=== PATIENT | male | born 1975 | race Caucasian/White ===

== ENCOUNTER 2024-06-23 04:22 | Day surgery (SDC) | payer OTHER ==
[2024-06-13 11:58] VITALS: BMI 31.4
[2024-06-23 07:27] VITALS: TEMP 97.9
[2024-06-23 09:04] VITALS: RESP 15
[2024-06-23 09:08] VITALS: BP 113/84; PULSE 61
== END 2024-06-23 09:11 | disposition home or self-care (01) ==
LOC: EDBD → JASU-ENDO 04:22
PROVIDERS: ATTEND Internal Medicine Gastroenterology
PROC: 0DB78ZX Excision of Stomach, Pylorus, Via Natural or Artificial Opening Endoscopic, Diagnostic (ICD-10-PCS; 2024-06-23)
PROC: 0DB68ZX Excision of Stomach, Via Natural or Artificial Opening Endoscopic, Diagnostic (ICD-10-PCS; 2024-06-23)
PROC: 0DB48ZX Excision of Esophagogastric Junction, Via Natural or Artificial Opening Endoscopic, Diagnostic (ICD-10-PCS; principal; 2024-06-23 08:00)
DX: K21.00 Gastro-esophageal reflux disease with esophagitis, without bleeding (principal); K29.50 Unspecified chronic gastritis without bleeding
CPT/HCPCS: 88305-TC

== ENCOUNTER 2024-07-21 07:07 | Day surgery (SDC) | payer OTHER ==
[2024-07-20 10:21] VITALS: BMI 33.0
[2024-07-21 11:40] VITALS: TEMP 97.7
[2024-07-21 12:06] VITALS: PULSE 60
[2024-07-21 12:07] VITALS: BP 99/62; RESP 11
== END 2024-07-21 12:07 | disposition home or self-care (01) ==
LOC: JASU-ENDO 07:07
PROVIDERS: ATTEND Internal Medicine Gastroenterology
PROC: 0DJD8ZZ Inspection of Lower Intestinal Tract, Via Natural or Artificial Opening Endoscopic (ICD-10-PCS; principal; 2024-07-21 10:15)
DX: Z12.11 Encounter for screening for malignant neoplasm of colon (principal); K57.30 Diverticulosis of large intestine without perforation or abscess without bleeding; K64.8 Other hemorrhoids